=== PATIENT | male | born 1950 | race African-American/Black ===

== ENCOUNTER 2019-03-30 15:05 | Emergency (ER) | payer BC, MEDICARE, OTHER ==
[~2019-03-30] VITALS: Ht 185.4 cm; Wt 88.6 kg
[2019-03-30] MEDS ORDERED: IV NORMAL SALINE 1000ML BAG 1,000 ML IV ONE (15:15)
--- NOTE | 2019-03-30 15:18 | PHYS DOC ---
Adult General Chief Complaint Chief Complaint: DIZZY/LIGHT HEADED [facility] HPI Patient is a 68 year old male who presents to the ER after being sent over from his primary care physician's office due to dizziness and hypotension. He had positive orthostatic vital signs in the clinic. 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 He was asymptomatic at that time. Currently he is lying in bed and states that he feels better. He denies chest pain or shortness of breath, headache numbness tingling or weakness. Amlodipine 5 mg daily for blood pressure control. Review of Systems Review of Systems All other ROS is negative unless otherwise stated in HPI Current Medications Current Medications Current Medications Medications (Trade) Dose Ordered Sig/Cristina Start Time Stop Time Status Last Admin Dose Admin Sodium Chloride 1,000 ml @ 1,000 mls/hr 1X ONCE 03/30/19 15:15 03/30/19 16:14 DC 03/30/19 15:43 1,000 MLS/HR Allergies Allergies Allergies Coded Allergies Type Severity Reaction Last Updated Verified No Known Drug Allergies 03/30/19 No Physical Exam Physical Exam See above Constitutional: Well developed, well nourished, no acute distress, non-toxic appearance. [] HENT: Normocephalic, atraumatic, bilateral external ears normal, oropharynx moist, no oral exudates, nose normal. [] Eyes: PERRLA, EOMI, conjunctiva normal, no discharge. [] Neck: Normal range of motion, no tenderness, supple, no stridor. [] Cardiovascular:Heart rate regular rhythm, no murmur [] Lungs & Thorax: Bilateral breath sounds clear to auscultation [] Abdomen: Bowel sounds normal, soft, no tenderness, no masses, no pulsatile masses. [] Skin: Warm, dry, no erythema, no rash. [] Back: No tenderness, no CVA tenderness. [] Extremities: No tenderness, no cyanosis, no clubbing, ROM intact, no edema. [] Neurologic: Alert and oriented X 3, normal motor function, normal sensory function, no focal deficits noted. [] Psychologic: Affect normal, judgement normal, mood normal. [] Current Patient Data Vital Signs Vital Signs Date Time Temp Pulse Resp B/P (MAP) Pulse Ox O2 Delivery O2 Flow Rate FiO2 2/20/20 15:45 83 18 100 03/30/19 15:12 98.1 117/59 (78) Room Air 98.1 Lab Values Laboratory Tests Test 03/30/19 15:30 White Blood Count 5.7 x10^3/uL (4.0-11.0) Red Blood Count 2.71 x10^6/uL (4.30-5.70) L Hemoglobin 8.6 g/dL (13.0-17.5) L Hematocrit 25.3 % (39.0-53.0) L Mean Corpuscular Volume 93 fL (79-100) Mean Corpuscular Hemoglobin 32 pg (25-35) Mean Corpuscular Hemoglobin Concent 34 g/dL (31-37) Red Cell Distribution Width 14.9 % (11.5-14.5) H Platelet Count 162 x10^3/uL (140-400) Neutrophils (%) (Auto) 70 % (31-73) Lymphocytes (%) (Auto) 22 % (24-48) L Monocytes (%) (Auto) 6 % (0-9) Eosinophils (%) (Auto) 0 % (0-3) Basophils (%) (Auto) 1 % (0-3) Neutrophils # (Auto) 4.0 x10^3/uL (1.8-7.7) Lymphocytes # (Auto) 1.2 x10^3/uL (1.0-4.8) Monocytes # (Auto) 0.3 x10^3/uL (0.0-1.1) Eosinophils # (Auto) 0.0 x10^3/uL (0.0-0.7) Basophils # (Auto) 0.1 x10^3/uL (0.0-0.2) Sodium Level 141 mmol/L (136-145) Potassium Level 4.1 mmol/L (3.5-5.1) Chloride Level 110 mmol/L (98-107) H Carbon Dioxide Level 24 mmol/L (21-32) Anion Gap 7 (6-14) Blood Urea Nitrogen 59 mg/dL (8-26) H Creatinine 1.7 mg/dL (0.7-1.3) H Estimated GFR (Cockcroft-Gault) 48.9 Glucose Level 106 mg/dL (70-99) H Calcium Level 8.1 mg/dL (8.5-10.1) L Troponin I Quantitative < 0.017 ng/mL (0.000-0.055) Thyroid Stimulating Hormone (TSH) 0.611 uIU/mL (0.358-3.74) Laboratory Tests 03/30/19 15:30 Laboratory Tests 03/30/19 15:30 EKG EKG [] Radiology/Procedures Radiology/Procedures [] Course & Med Decision Making Course & Med Decision Making Pertinent Labs and Imaging studies reviewed. (See chart for details) 1518: Patient seen for dizziness and hypotension. He is currently feeling better and his blood pressure is 122/64 while lying in bed. We'll give IV fluids and check basic labs. I suspect he is likely orthostatic which is causing his low blood pressure. 1623: Patient's labs are back and he does have an elevated creatinine and he is also anemic. I discussed this with the patient and he states he was told he has stage III chronic kidney disease which is consistent with a creatinine of 1.7. His hemoglobin is 8.6 which could be from chronic renal disease or other etiologies; patient states she has never been told he has been anemic. We rechecked his orthostatic vital signs and he is no longer orthostatic; pulse increase slightly but minimal symptoms. She will be instructed to follow-up with his primary care physician next week for reevaluation of his blood pressure and also to initiate anemia workup. Dragon Disclaimer Dragon Disclaimer This electronic medical record was generated, in whole or in part, using a voice recognition dictation system. Departure Departure Impression: Primary Impression: Orthostatic hypotension Additional Impressions: CKD (chronic kidney disease), stage III Anemia Disposition: 01 HOME, SELF-CARE Condition: IMPROVED Referrals: RAYSA SHEARER (PCP) Please follow up next week to recheck BP and discuss anemia. Patient Instructions: Anemia, Nonspecific-Brief, Orthostatic Hypotension Additional Instructions: Please return to the emergency department for worsening symptoms. Monitor your blood pressure twice daily and bring ER record to your doctor next week. Problem Qualifiers DANYELLE GAMBLE DO Mar 30, 2019 15:18
[2019-03-30] MEDS ORDERED: ASCO500C PO (15:37)
[2019-03-30] MEDS ORDERED: AMLO5TAB10 PO (15:37)
[2019-03-30] MEDS ORDERED: ASPI-424 PO (15:37)
[2019-03-30] MEDS ORDERED: OMEG1CAP50 PO (15:37)
[2019-03-30 15:39] LABS: BASO # 0.1 x10^3/uL (0.0-0.2); BASO % 1 % (0-3); EOS % 0 % (0-3); HEMATOCRIT 25.3 % (39.0-53.0); HEMOGLOBIN 8.6 g/dL (13.0-17.5); LYMPH # 1.2 x10^3/uL (1.0-4.8); LYMPH % 22 % (24-48); MEAN CORPUSCULAR HEMOGLOBIN 32 pg (25-35); MEAN CORPUSCULAR HGB CONC 34 g/dL (31-37); MEAN CORPUSCULAR VOLUME 93 fL (79-100); MONO # 0.3 x10^3/uL (0.0-1.1); MONO % 6 % (0-9); NEUT % 70 % (31-73); PLATELET COUNT 162 x10^3/uL (140-400); RED BLOOD COUNT 2.71 x10^6/uL (4.30-5.70); RED CELL DISTRIBUTION WIDTH 14.9 % (11.5-14.5); WHITE BLOOD COUNT 5.7 x10^3/uL (4.0-11.0)
[2019-03-30 15:49] LABS: CALCIUM 8.1 mg/dL (8.5-10.1); CREATININE 1.7 mg/dL (0.7-1.3); GFR 48.9; POTASSIUM 4.1 mmol/L (3.5-5.1)
--- NOTE | 2019-03-30 15:53 | EKG ---
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
[2019-03-30 16:15] VITALS: BP 126/67
[2019-04-03] MEDS ORDERED: PANT40TA77 PO (09:32)
== END 2019-03-30 16:47 | disposition home or self-care (01) ==
LOC: ER 15:05
DX: I10 Essential (primary) hypertension (principal); N18.3 Chronic kidney disease, stage 3 (moderate); D64.9 Anemia, unspecified; R42 Dizziness and giddiness
CPT/HCPCS: 36415; 80048; 84443; 84484; 85025; 93005; 96360; 99284; J7030

== ENCOUNTER 2019-04-01 09:17 | Inpatient (IN) | payer BC ==
[~2019-04-01] VITALS: Ht 186.7 cm; Wt 90.4 kg
[2019-04-01] VITALS (10 sets, daily range): BP systolic 112–132; BP diastolic 54–78
[~2019-04-01 09:17] MED LIST: AMLO5TAB10 PO; ASCO500C PO; ASPI-424 PO; OMEG1CAP50 PO
[2019-04-01 10:12] LABS: BASO # 0.1 x10^3/uL (0.0-0.2); BASO % 1 % (0-3); EOS # 0.1 x10^3/uL (0.0-0.7); EOS % 1 % (0-3); LYMPH # 1.2 x10^3/uL (1.0-4.8); LYMPH % 21 % (24-48); MEAN CORPUSCULAR HEMOGLOBIN 32 pg (25-35); MEAN CORPUSCULAR HGB CONC 34 g/dL (31-37); MEAN CORPUSCULAR VOLUME 93 fL (79-100); MONO # 0.5 x10^3/uL (0.0-1.1); MONO % 8 % (0-9); NEUT # 3.9 x10^3/uL (1.8-7.7); NEUT % 69 % (31-73); PLATELET COUNT 155 x10^3/uL (140-400); RED BLOOD COUNT 2.18 x10^6/uL (4.30-5.70); RED CELL DISTRIBUTION WIDTH 15.5 % (11.5-14.5); WHITE BLOOD COUNT 5.7 x10^3/uL (4.0-11.0)
[2019-04-01 10:13] LABS: CALCIUM 8.5 mg/dL (8.5-10.1); CREATININE 1.8 mg/dL (0.7-1.3); GFR 45.8; POTASSIUM 3.8 mmol/L (3.5-5.1)
[2019-04-01 10:18] LABS: HEMOGLOBIN 6.9 g/dL (13.0-17.5)
[2019-04-01 10:19] LABS: ALBUMIN 2.8 g/dL (3.4-5.0); ALBUMIN/GLOBULIN RATIO 0.9 (1.0-1.7); HEMATOCRIT 20.4 % (39.0-53.0); TOTAL BILIRUBIN 0.3 mg/dL (0.2-1.0)
[2019-04-01 10:26] LABS: PROTHROMBIN TIME PATIENT 13.8 SEC (11.7-14.0)
[2019-04-01 10:36] LABS: FECAL OB PT POSITIVE (NEG)
[2019-04-01] MEDS ORDERED: PANTOPRAZOLE IV PUSH 40 MG VIAL. IVP ONE (10:45)
--- NOTE | 2019-04-01 10:46 | PHYS DOC ---
Past Medical History Past Medical History: Hypertension, Renal Disease, Other Additional Past Medical Histor: encephalitis, TBI Past Surgical History: No Surgical History Smoking Status: Never Smoker Alcohol Use: None Adult General Chief Complaint Chief Complaint: BLOODY STOOL HPI HPI Patient is a 68 year old male who was evaluated in the ER on 03/30/19 after being sent over from his primary care physician's office due to dizziness and hypotension. He had positive orthostatic vital signs in the clinic. 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 He was asymptomatic at that time. He was found to be orthostatus hypotension. He was given IV fluid, felt much better. He was found to be anemic, his hemoglobin was 8.6 on 03/30/19. Due to no active bleeding and history of chronic renal insufficiency, he was deem safe to be discharged home. He came back today for evaluation because he passed dark stool last night. He continues to feel weak and shortness of air with exertion. Patient denied any abdominal pain, no chest pain. He denied vomiting blood. His stopped taking his aspirin 4 days ago. Review of Systems Review of Systems Constitutional: Denies fever or chills [] Eyes: Denies change in visual acuity, redness, or eye pain [] HENT: Denies nasal congestion or sore throat [] Respiratory: Denies cough or shortness of breath [] Cardiovascular: No additional information not addressed in HPI [] GI: Denies abdominal pain, nausea, vomiting, bloody stools or diarrhea [] : Denies dysuria or hematuria [] Musculoskeletal: Denies back pain or joint pain [] Integument: Denies rash or skin lesions [] Neurologic: Denies headache, focal weakness or sensory changes. POSITIVE FOR GENERALIZED WEAKNESS Endocrine: Denies polyuria or polydipsia [] All other systems were reviewed and found to be within normal limits, except as documented in this note. Current Medications Current Medications Current Medications Medications (Trade) Dose Ordered Sig/Cristina Start Time Stop Time Status Last Admin Dose Admin Ondansetron HCl (Zofran) 4 mg PRN Q8HRS PRN 04/01/19 11:15 04/02/19 11:14 Pantoprazole Sodium (PROTONIX VIAL for IV PUSH) 40 mg 1X ONCE 04/01/19 10:45 04/01/19 10:46 DC 04/01/19 11:10 40 MG Allergies Allergies Allergies Coded Allergies Type Severity Reaction Last Updated Verified No Known Drug Allergies 04/01/19 No Physical Exam Physical Exam Constitutional: Well developed, well nourished, no acute distress, non-toxic appearance. [] HENT: Normocephalic, atraumatic, bilateral external ears normal, oropharynx moist, no oral exudates, nose normal. [] Eyes: PERRLA, EOMI, conjunctiva IS VERY PALE, no discharge. [] Neck: Normal range of motion, no tenderness, supple, no stridor. [] Cardiovascular:Heart rate regular rhythm, no murmur [] Lungs & Thorax: Bilateral breath sounds clear to auscultation [] Abdomen: Bowel sounds normal, soft, no tenderness, no masses, no pulsatile masses. [] Skin: Warm, dry, no erythema, no rash. VERY PALE Back: No tenderness, no CVA tenderness. [] Extremities: No tenderness, no cyanosis, no clubbing, ROM intact, no edema. [] Neurologic: Alert and oriented X 3, normal motor function, normal sensory function, no focal deficits noted. [] Psychologic: Affect normal, judgement normal, mood normal. [] Current Patient Data Vital Signs Vital Signs Date Time Temp Pulse Resp B/P (MAP) Pulse Ox O2 Delivery O2 Flow Rate FiO2 04/01/19 09:20 97.5 84 20 130/63 (85) 99 Room Air 97.5 Lab Values Laboratory Tests Test 04/01/19 09:59 04/01/19 10:10 White Blood Count 5.7 x10^3/uL (4.0-11.0) Red Blood Count 2.18 x10^6/uL (4.30-5.70) L Hemoglobin 6.9 g/dL (13.0-17.5) *L Hematocrit 20.4 % (39.0-53.0) *L Mean Corpuscular Volume 93 fL (79-100) Mean Corpuscular Hemoglobin 32 pg (25-35) Mean Corpuscular Hemoglobin Concent 34 g/dL (31-37) Red Cell Distribution Width 15.5 % (11.5-14.5) H Platelet Count 155 x10^3/uL (140-400) Neutrophils (%) (Auto) 69 % (31-73) Lymphocytes (%) (Auto) 21 % (24-48) L Monocytes (%) (Auto) 8 % (0-9) Eosinophils (%) (Auto) 1 % (0-3) Basophils (%) (Auto) 1 % (0-3) Neutrophils # (Auto) 3.9 x10^3/uL (1.8-7.7) Lymphocytes # (Auto) 1.2 x10^3/uL (1.0-4.8) Monocytes # (Auto) 0.5 x10^3/uL (0.0-1.1) Eosinophils # (Auto) 0.1 x10^3/uL (0.0-0.7) Basophils # (Auto) 0.1 x10^3/uL (0.0-0.2) Prothrombin Time 13.8 SEC (11.7-14.0) Prothrombin Time INR 1.1 (0.8-1.1) Activated Partial Thromboplast Time 25 SEC (24-38) Sodium Level 144 mmol/L (136-145) Potassium Level 3.8 mmol/L (3.5-5.1) Chloride Level 108 mmol/L (98-107) H Carbon Dioxide Level 27 mmol/L (21-32) Anion Gap 9 (6-14) Blood Urea Nitrogen 28 mg/dL (8-26) H Creatinine 1.8 mg/dL (0.7-1.3) H Estimated GFR (Cockcroft-Gault) 45.8 BUN/Creatinine Ratio 16 (6-20) Glucose Level 108 mg/dL (70-99) H Calcium Level 8.5 mg/dL (8.5-10.1) Total Bilirubin 0.3 mg/dL (0.2-1.0) Aspartate Amino Transferase (AST) 25 U/L (15-37) Alanine Aminotransferase (ALT) 36 U/L (16-63) Alkaline Phosphatase 39 U/L (46-116) L Total Protein 6.0 g/dL (6.4-8.2) L Albumin 2.8 g/dL (3.4-5.0) L Albumin/Globulin Ratio 0.9 (1.0-1.7) L Stool Occult Blood Positive (NEG) Laboratory Tests 04/01/19 09:59 Laboratory Tests 04/01/19 09:59 EKG EKG [] Radiology/Procedures Radiology/Procedures [] Course & Med Decision Making Course & Med Decision Making Pertinent Labs and Imaging studies reviewed. (See chart for details) Patient is a 68-year-old male who was found to be anemic, report of history of dark stool, suspect OF upper GI bleeding, patient was given 40 mg of protonic IV in the ER, he was given a transfusion 1 unit OF PRBC. Patient WILL be admitted hospital for further evaluation. GI CONSULT, DISCUSSED WITH DR. MASSEY WHO AGREED TO ADMIT PATIENT. Dragon Disclaimer Dragon Disclaimer This electronic medical record was generated, in whole or in part, using a voice recognition dictation system. Departure Departure Impression: Primary Impression: Anemia Additional Impression: GI bleed Disposition: ADMITTED INPATIENT Admitting Physician: Nayla Massey Condition: STABLE Referrals: RAYSA SHEARER (PCP) Problem Qualifiers ADIEL BE DO Apr 01, 2019 10:46
[2019-04-01] MEDS ORDERED: ONDANSETRON PF 4 MG/2 ML VIAL. IV PRN (11:15)
[2019-04-01 11:23] LABS: BILIRUBIN,URINE NEGATIVE (NEG); CLARITY,URINE CLEAR; COLOR,URINE YELLOW; NITRITE,URINE NEGATIVE (NEG); PH,URINE 5.5; PROTEIN,URINE NEGATIVE (NEG-TRACE); UROBILINOGEN,URINE 0.2 mg/dL (0.2 mg/dL)
[2019-04-01 11:37] LABS: BACTERIA,URINE 0 /HPF (0-FEW); RBC,URINE 0 /HPF (0-2); SQUAMOUS EPITHELIAL CELL,UR FEW /LPF; WBC,URINE 0 /HPF (0-4)
--- NOTE | 2019-04-01 14:36 | PDOC2 ---
GI CONSULT Reason For Consult: anemia, melena HPI: HPI: 68 year old male who was evaluated in the ER on 03/30/19 after being sent over from his primary care physician's office due to dizziness and hypotension. He had positive orthostatic vital signs in the clinic. 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 He was discharged home. He came back today for evaluation because he passed dark stool last night. He continues to feel weak and shortness of air with exertion. Patient denied any abdominal pain, no chest pain. He denied vomiting blood. His stopped taking his aspirin 2 days ago. he denies any other NSAIDs. he has been having indigestion for which he takes TUMs. He also has been having a daily BM which is an increase for him He was found to have a hgb of 6.9 in the ER. he reports a colonoscopy by Dr Brantley 10/2018. His thinks that he may have had an ulcer. She reports that she was told that biopsies were unrevealing. he has never had an EGD PMH: PMH: Past Medical History Past Medical History: Hypertension, Renal Disease, heart murmur as a teen Additional Past Medical Histor: encephalitis, TBI Past Surgical History: No Surgical History Smoking Status: Never Smoker Alcohol Use: None FMH: father with CRC in his 70s Current Medications Current Medications Amlodipine Vitamin C Fish oil ASA 81 mg Allergies Allergies Allergies Coded Allergies Type Severity Reaction Last Updated Verified No Known Drug Allergies 04/01/19 No Social History: Smoke: No ALCOHOL: none Drugs: None ROS: Review of Systems Review of Systems Constitutional: Denies fever or chills [] Eyes: Denies change in visual acuity, redness, or eye pain [] HENT: Denies nasal congestion or sore throat [] Respiratory: Denies cough or shortness of breath [] Cardiovascular: No additional information not addressed in HPI [] GI: Denies abdominal pain, nausea, vomiting, bloody stools or diarrhea [] : Denies dysuria or hematuria [] Musculoskeletal: Denies back pain or joint pain [] Integument: Denies rash or skin lesions [] Neurologic: Denies headache, focal weakness or sensory changes. POSITIVE FOR GENERALIZED WEAKNESS Endocrine: Denies polyuria or polydipsia [] All other systems were reviewed and found to be within normal limits, except as documented in this note. VItals: Vitals: Vital Signs Date Time Temp Pulse Resp B/P (MAP) Pulse Ox O2 Delivery O2 Flow Rate FiO2 04/01/19 12:33 97.7 74 16 112/64 (80) 98 Room Air 97.7 Labs: Labs: Laboratory Tests Test 04/01/19 09:59 04/01/19 10:10 04/01/19 11:12 White Blood Count 5.7 x10^3/uL (4.0-11.0) Red Blood Count 2.18 x10^6/uL (4.30-5.70) Hemoglobin 6.9 g/dL (13.0-17.5) Hematocrit 20.4 % (39.0-53.0) Mean Corpuscular Volume 93 fL (79-100) Mean Corpuscular Hemoglobin 32 pg (25-35) Mean Corpuscular Hemoglobin Concent 34 g/dL (31-37) Red Cell Distribution Width 15.5 % (11.5-14.5) Platelet Count 155 x10^3/uL (140-400) Neutrophils (%) (Auto) 69 % (31-73) Lymphocytes (%) (Auto) 21 % (24-48) Monocytes (%) (Auto) 8 % (0-9) Eosinophils (%) (Auto) 1 % (0-3) Basophils (%) (Auto) 1 % (0-3) Neutrophils # (Auto) 3.9 x10^3/uL (1.8-7.7) Lymphocytes # (Auto) 1.2 x10^3/uL (1.0-4.8) Monocytes # (Auto) 0.5 x10^3/uL (0.0-1.1) Eosinophils # (Auto) 0.1 x10^3/uL (0.0-0.7) Basophils # (Auto) 0.1 x10^3/uL (0.0-0.2) Prothrombin Time 13.8 SEC (11.7-14.0) Prothromb Time International Ratio 1.1 (0.8-1.1) Activated Partial Thromboplast Time 25 SEC (24-38) Sodium Level 144 mmol/L (136-145) Potassium Level 3.8 mmol/L (3.5-5.1) Chloride Level 108 mmol/L (98-107) Carbon Dioxide Level 27 mmol/L (21-32) Anion Gap 9 (6-14) Blood Urea Nitrogen 28 mg/dL (8-26) Creatinine 1.8 mg/dL (0.7-1.3) Estimated GFR (Cockcroft-Gault) 45.8 BUN/Creatinine Ratio 16 (6-20) Glucose Level 108 mg/dL (70-99) Calcium Level 8.5 mg/dL (8.5-10.1) Total Bilirubin 0.3 mg/dL (0.2-1.0) Aspartate Amino Transf (AST/SGOT) 25 U/L (15-37) Alanine Aminotransferase (ALT/SGPT) 36 U/L (16-63) Alkaline Phosphatase 39 U/L (46-116) Total Protein 6.0 g/dL (6.4-8.2) Albumin 2.8 g/dL (3.4-5.0) Albumin/Globulin Ratio 0.9 (1.0-1.7) Stool Occult Blood Positive (NEG) Urine Collection Type Unknown Urine Color Yellow Urine Clarity Clear Urine pH 5.5 Urine Specific Egan 1.015 Urine Protein Negative mg/dL (NEG-TRACE) Urine Glucose (UA) Negative mg/dL (NEG) Urine Ketones (Stick) Negative mg/dL (NEG) Urine Blood Negative (NEG) Urine Nitrite Negative (NEG) Urine Bilirubin Negative (NEG) Urine Urobilinogen Dipstick 0.2 mg/dL (0.2 mg/dL) Urine Leukocyte Esterase Negative (NEG) Urine RBC 0 /HPF (0-2) Urine WBC 0 /HPF (0-4) Urine Squamous Epithelial Cells Few /LPF Urine Bacteria 0 /HPF (0-FEW) PE: GEN: NAD HEENT: Atraumatic, PERRLA LUNGS: CTAB HEART: RRR, with a 2/6 systolic murmur ABD: NABS, S/ND/NT, no masses EXTREMITY: No edema SKIN: No rashes, no jaundice NEURO/PSYCH: A & O 3 A/P: A/P: A 1) Anemia 2) Melena 3) FMH CRC P 1) PPI gtts 2) transfuse prbcs 3) EGD tomorrow after transfusion today PRO SUGGS MD Apr 01, 2019 14:36
[2019-04-01] MEDS ORDERED: 0.9 % SODIUM CHLORIDE 10 ML DISP.SYRIN. IV PRN (14:45)
[2019-04-01] MEDS: PANTOPRAZOLE SODIUM IV DRIP 80 MG in IV NORMAL SALINE 100ML 100 ML IV SCH (21:42)
[2019-04-01] MEDS: IV NORMAL SALINE 1000ML BAG 1,000 ML IV SCH (22:30)
[2019-04-01 22:46] LABS: HEMATOCRIT 21.3 % (39.0-53.0); HEMOGLOBIN 7.4 g/dL (13.0-17.5)
[2019-04-02] VITALS (13 sets, daily range): BP systolic 63–128; BP diastolic 52–71
[2019-04-02] MEDS: PANTOPRAZOLE SODIUM IV DRIP 80 MG in IV NORMAL SALINE 100ML 100 ML IV SCH ×2 (01:00→11:00)
[2019-04-02 05:37] LABS: HEMATOCRIT 21.9 % (39.0-53.0); HEMOGLOBIN 7.5 g/dL (13.0-17.5); WHITE BLOOD COUNT 5.6 x10^3/uL (4.0-11.0)
[2019-04-02 05:54] LABS: CREATININE 1.7 mg/dL (0.7-1.3); GFR 48.9; POTASSIUM 3.7 mmol/L (3.5-5.1)
[2019-04-02] MEDS: IV NORMAL SALINE 1000ML BAG 1,000 ML IV SCH (06:10)
--- NOTE | 2019-04-02 11:15 | PDOC ---
Provider Note Provider Note Pt seen.H&P dictated. #[id number]. JLUIS CHRISTOPHER MD Apr 02, 2019 11:15
[2019-04-02] MEDS ORDERED: PROPOFOL 20 ML IV ONE (12:58)
[2019-04-02] MEDS ORDERED: LIDOCAINE 2% PF 5 ML VIAL. ONE (12:59)
--- NOTE | 2019-04-02 13:35 | PDOC ---
Subjective: Subjective: no further black stools. Received one unit of blood yesterday. Hgb 7.5 Objective: Vital Signs: Vital Signs Date Time Temp Pulse Resp B/P (MAP) Pulse Ox O2 Delivery O2 Flow Rate FiO2 04/02/19 13:20 98.0 89 20 105/67 97 Room Air 98.0 Labs: Laboratory Tests Test 04/01/19 22:30 04/02/19 04:55 Hemoglobin 7.4 g/dL (13.0-17.5) 7.5 g/dL (13.0-17.5) Hematocrit 21.3 % (39.0-53.0) 21.9 % (39.0-53.0) White Blood Count 5.6 x10^3/uL (4.0-11.0) Platelet Count 155 x10^3/uL (140-400) Sodium Level 144 mmol/L (136-145) Potassium Level 3.7 mmol/L (3.5-5.1) Chloride Level 108 mmol/L (98-107) Carbon Dioxide Level 29 mmol/L (21-32) Anion Gap 7 (6-14) Blood Urea Nitrogen 19 mg/dL (8-26) Creatinine 1.7 mg/dL (0.7-1.3) Estimated GFR (Cockcroft-Gault) 48.9 Glucose Level 104 mg/dL (70-99) Calcium Level 8.0 mg/dL (8.5-10.1) Physical Exam: Physical Exam: GEN: NAD HEENT: OP clear CV: S1S2 without murmurs, rubs, or gallops RESP: CTAB without wheezing, rhonchi, or crackles ABD: NABS, SNT/ND EXT: No edema NEURO: AAO x 3 Assessment & Plan: Assessment : 1) Anemia 2) melena GI Procedure note: Full not on chart Findings: 1) Esophagitis biopsied 2) Gastric ulcer in antrum- nonbleeding and gastritis biopsied 3) normal small bowel- biopsied Plan: 1) Continue PPI 2) Await biopsy results 3) Will give one more unit prbcs 4) Hold ASA for now 5) Likely d/c tomorrow PRO SUGGS MD Apr 02, 2019 13:35
--- NOTE | 2019-04-02 14:33 | HP ---
ADMIT DATE: MEDICAL HISTORY AND PHYSICAL REASON FOR ADMISSION TO THE HOSPITAL: Anemia, possible upper GI bleed, hypertension. HISTORY OF PRESENT ILLNESS: The patient is a 68-year-old male, patient of Dr. Montoya. The patient came to the Emergency Room 1 day before lightheaded, dizzy, was given fluids, sent home and he was noticed some black stools. The patient came back again and was seen in the Emergency Room, had blood test, shows hemoglobin 6.9, was given a unit of packed RBC. GI was consulted, scheduled for EGD. The patient has a colonoscopy within last 6 months and was negative. PAST MEDICAL HISTORY: Hypertension, mild kidney disease, encephalitis in the past. PAST SURGICAL HISTORY: No major surgeries. ALLERGIES: No allergies. FAMILY HISTORY: Kidney disease. PERSONAL HISTORY: Denies smoking, alcohol or drug abuse. MEDICATIONS AT HOME: The patient takes amlodipine, fish oil and aspirin. REVIEW OF SYSTEMS: Complains of black stools. Denies any vomiting blood. Rest of the 14 systems was reviewed and negative. PHYSICAL EXAMINATION: VITAL SIGNS: Temperature 97, pulse 80, respirations 20, blood pressure 120/80. HEENT: Head is atraumatic. Pupils equal. Oral cavity: No congestion. NECK: Supple. Thyroid not enlarged. JVD not elevated. CHEST: Symmetrical. CARDIOVASCULAR: S1, S2. LUNGS: Clear to auscultation. ABDOMEN: Soft, bowel sounds present, no mass palpable. EXTERNAL GENITALIA: No [place]. RECTAL: Deferred. EXTREMITIES: No calf tenderness, no edema. Pulses 1+. NEUROLOGIC: Moving all extremities. No focal deficits noted. LABORATORY DATA: Shows a white count of 5, hemoglobin 6.9, platelets 155. INR 1.1. Electrolytes showed sodium 144, potassium 3.8, chloride 108, bicarb 27, creatinine 1.8. LFTs were normal. Stool occult blood was positive. FINAL IMPRESSION: 1. Upper gastrointestinal bleed. 2. Anemia. 3. Hypertension. 4. Chronic kidney disease. PLAN: At this time, was admitted to the hospital. Transfuse 1 unit. Started on IV Protonix and Protonix drip. GI consulted. Schedule for EGD, IV fluids and see how he improves. Stop aspirin. JLUIS CHRISTOPHER MD DR: FELIZ/larry JOB#: [id number] / [id number] RAYSA Lai
[2019-04-03 03:30] VITALS: BP 113/61
[2019-04-03 04:08] LABS: BASO % 1 % (0-3); EOS # 0.1 x10^3/uL (0.0-0.7); EOS % 1 % (0-3); HEMATOCRIT 25.3 % (39.0-53.0); HEMOGLOBIN 8.8 g/dL (13.0-17.5); LYMPH # 1.6 x10^3/uL (1.0-4.8); LYMPH % 20 % (24-48); MEAN CORPUSCULAR HEMOGLOBIN 32 pg (25-35); MEAN CORPUSCULAR HGB CONC 35 g/dL (31-37); MEAN CORPUSCULAR VOLUME 93 fL (79-100); MONO # 0.7 x10^3/uL (0.0-1.1); MONO % 8 % (0-9); NEUT # 5.6 x10^3/uL (1.8-7.7); NEUT % 71 % (31-73); PLATELET COUNT 168 x10^3/uL (140-400); RED BLOOD COUNT 2.73 x10^6/uL (4.30-5.70); RED CELL DISTRIBUTION WIDTH 15.1 % (11.5-14.5)
[2019-04-03 04:36] LABS: CALCIUM 7.9 mg/dL (8.5-10.1); CREATININE 1.8 mg/dL (0.7-1.3); GFR 45.8; POTASSIUM 3.5 mmol/L (3.5-5.1)
[2019-04-03] MEDS ORDERED: PANTOPRAZOLE 40 MG TABLET.DR. PO SCH (07:30)
[2019-04-03 07:59] VITALS: BP 101/57
--- NOTE | 2019-04-03 09:29 | PDOC ---
PROGRESS NOTES Subjective Subjective feels better today Objective Objective Vital Signs Date Time Temp Pulse Resp B/P (MAP) Pulse Ox O2 Delivery O2 Flow Rate FiO2 04/03/19 08:06 Room Air 04/03/19 07:59 98.4 69 18 101/57 (72) 99 98.4 Intake and Output 04/03/19 07:00 Intake Total 2220 ml Output Total 1780 ml Balance 440 ml Intake Oral 1570 ml Blood Product IV Normal Saline Flush 650 ml Output Urine Total 1780 ml Physical Exam Abdomen: Soft Heart: Regular rate Extremities: No clubbing General: Oriented X3 HEENT: Atraumatic Lungs: Clear to auscultation MUSCULOSKELETAL: No swelling Neck: No JVD Neuro: Normal speech Psych/Mental Status: Mental status NL Skin: No breakdown Diagnosis Problem List Problems Medical Problems: (1) Anemia Status: Acute (2) GI bleed Status: Acute Assessment Assessment Problems Medical Problems: (1) Anemia Status: Acute (2) GI bleed Status: Acute FINAL IMPRESSION: 1. Upper gastrointestinal bleed. 2. Anemia. 3. Hypertension. 4. Chronic kidney disease. Findings:recieved 2 u prbc ,Hb 8.8. cr 1.8 stable. d/c home on protonix stop asa and Nsaids. 1) Esophagitis biopsied 2) Gastric ulcer in antrum- nonbleeding and gastritis biopsied 3) normal small bowel- biopsied Plan Plan of Care Problems Medical Problems: (1) Anemia Status: Acute (2) GI bleed Status: Acute Comment Review of Relevant I have reviewed the following items galdino (where applicable) has been applied. Labs Laboratory Tests Test 04/03/19 03:15 White Blood Count 8.0 x10^3/uL (4.0-11.0) Red Blood Count 2.73 x10^6/uL (4.30-5.70) Hemoglobin 8.8 g/dL (13.0-17.5) Hematocrit 25.3 % (39.0-53.0) Mean Corpuscular Volume 93 fL (79-100) Mean Corpuscular Hemoglobin 32 pg (25-35) Mean Corpuscular Hemoglobin Concent 35 g/dL (31-37) Red Cell Distribution Width 15.1 % (11.5-14.5) Platelet Count 168 x10^3/uL (140-400) Neutrophils (%) (Auto) 71 % (31-73) Lymphocytes (%) (Auto) 20 % (24-48) Monocytes (%) (Auto) 8 % (0-9) Eosinophils (%) (Auto) 1 % (0-3) Basophils (%) (Auto) 1 % (0-3) Neutrophils # (Auto) 5.6 x10^3/uL (1.8-7.7) Lymphocytes # (Auto) 1.6 x10^3/uL (1.0-4.8) Monocytes # (Auto) 0.7 x10^3/uL (0.0-1.1) Eosinophils # (Auto) 0.1 x10^3/uL (0.0-0.7) Basophils # (Auto) 0.0 x10^3/uL (0.0-0.2) Sodium Level 143 mmol/L (136-145) Potassium Level 3.5 mmol/L (3.5-5.1) Chloride Level 109 mmol/L (98-107) Carbon Dioxide Level 26 mmol/L (21-32) Anion Gap 8 (6-14) Blood Urea Nitrogen 20 mg/dL (8-26) Creatinine 1.8 mg/dL (0.7-1.3) Estimated GFR (Cockcroft-Gault) 45.8 Glucose Level 110 mg/dL (70-99) Calcium Level 7.9 mg/dL (8.5-10.1) Medications Current Medications Lidocaine HCl (Lidocaine Pf 2% Vial) 5 ml STK-MED ONCE .ROUTE ; Start 04/02/19 at 12:59; Stop 04/02/19 at 12:59; Status DC Pantoprazole Sodium (Protonix) 40 mg DAILYAC PO ; Start 04/03/19 at 07:30; Stop 04/02/19 at 20:26; Status DC Propofol 20 ml @ As Directed STK-MED ONCE IV ; Start 04/02/19 at 12:58; Stop 04/02/19 at 12:59; Status DC Vitals/I & O Vital Sign - Last 24 Hours 04/02/19 04/02/19 04/02/19 04/02/19 11:37 12:34 13:10 13:20 Temp 98.0 98.0 98.0 98.0 98.0 98.0 98.0 98.0 Pulse 61 75 71 89 Resp 16 20 20 20 B/P (MAP) 63/62 (62) 116/66 105/67 Pulse Ox 97 98 98 97 O2 Delivery Room Air Room Air Room Air 04/02/19 04/02/19 04/02/19 04/02/19 13:29 14:24 14:30 14:45 Temp 98.0 97.6 97.5 98.0 98.0 97.6 97.5 98.0 Pulse 68 65 63 72 Resp 20 18 18 18 B/P (MAP) 136/71 127/58 122/71 125/69 Pulse Ox 99 O2 Delivery Room Air 04/02/19 04/02/19 04/02/19 04/02/19 15:00 15:15 15:30 15:30 Temp 97.6 97.6 97.9 97.5 97.6 97.6 97.9 97.5 Pulse 73 73 64 74 Resp 18 18 16 18 B/P (MAP) 128/62 124/56 100/64 (76) 118/68 Pulse Ox 96 O2 Delivery Room Air 04/02/19 04/02/19 04/02/19 04/02/19 16:30 17:09 19:35 20:00 Temp 98.0 97.6 97.7 98.0 97.6 97.7 Pulse 74 76 76 Resp 18 18 17 B/P (MAP) 118/64 120/62 122/63 (82) Pulse Ox 99 O2 Delivery Room Air Room Air 04/02/19 04/03/19 04/03/19 04/03/19 23:35 03:30 07:59 08:06 Temp 98.6 98.7 98.4 98.6 98.7 98.4 Pulse 76 18 69 Resp 17 17 18 B/P (MAP) 111/52 (71) 113/61 (78) 101/57 (72) Pulse Ox 98 95 99 O2 Delivery Room Air Room Air Room Air Room Air Intake and Output 04/02/19 04/02/19 04/03/19 15:00 23:00 07:00 Intake Total 380 ml 800 ml 1040 ml Output Total 680 ml 600 ml 500 ml Balance -300 ml 200 ml 540 ml JLUIS CHRISTOPHER MD Apr 03, 2019 09:29
[2019-04-03] MEDS ORDERED: PANT40TA77 PO (09:32)
--- NOTE | 2019-04-03 09:36 | PDOC ---
Provider Note Provider Note Discharge summary dictated.#[id number]. JLUIS CHRISTOPHER MD Apr 03, 2019 09:36
--- NOTE | 2019-04-03 10:36 | PDOC ---
Subjective: Subjective: Feeling good, no bleeding, tolerating diet, would like to go home today. Objective: Vital Signs: Vital Signs Date Time Temp Pulse Resp B/P (MAP) Pulse Ox O2 Delivery O2 Flow Rate FiO2 04/03/19 08:06 Room Air 04/03/19 07:59 98.4 69 18 101/57 (72) 99 98.4 Labs: Laboratory Tests Test 04/03/19 03:15 White Blood Count 8.0 x10^3/uL Red Blood Count 2.73 x10^6/uL Hemoglobin 8.8 g/dL Hematocrit 25.3 % Mean Corpuscular Volume 93 fL Mean Corpuscular Hemoglobin 32 pg Mean Corpuscular Hemoglobin Concent 35 g/dL Red Cell Distribution Width 15.1 % Platelet Count 168 x10^3/uL Neutrophils (%) (Auto) 71 % Lymphocytes (%) (Auto) 20 % Monocytes (%) (Auto) 8 % Eosinophils (%) (Auto) 1 % Basophils (%) (Auto) 1 % Neutrophils # (Auto) 5.6 x10^3/uL Lymphocytes # (Auto) 1.6 x10^3/uL Monocytes # (Auto) 0.7 x10^3/uL Eosinophils # (Auto) 0.1 x10^3/uL Basophils # (Auto) 0.0 x10^3/uL Sodium Level 143 mmol/L Potassium Level 3.5 mmol/L Chloride Level 109 mmol/L Carbon Dioxide Level 26 mmol/L Anion Gap 8 Blood Urea Nitrogen 20 mg/dL Creatinine 1.8 mg/dL Estimated GFR (Cockcroft-Gault) 45.8 Glucose Level 110 mg/dL Calcium Level 7.9 mg/dL Imaging: EGD by Dr. Michel 04/02 Findings: 1) Esophagitis biopsied 2) Gastric ulcer in antrum- nonbleeding and gastritis biopsied 3) normal small bowel- biopsied PE: GEN: NAD LUNGS: CTAB HEART: RRR ABD: NABS, S/ND/NT NEURO/PSYCH: A & O 3 A/P: Melena - resolved Anemia - improved/stable post transfusions Esophagitis, - EGD path pending CRC screen - UTD ASA use - held CKD -- DC per primary on PPI - d/w pt. Hold ASA x 2 weeks. Follow-up re: biopsy results. Hemodynamically unstable?: No Is patient in severe pain?: No Is NPO status required?: No ZEYNEP LAZAR Apr 03, 2019 10:36
--- NOTE | 2019-04-03 12:18 | NUR ---
pt is discharged home with self care at 1215 via ambulation via huma, ASSEMBLER PING PONG TABLE. pt is in stable condition with at side. pt has all belongings with him. pt received discharge instructions and prescriptions and stated he had no further questions for me.
--- NOTE | 2019-04-03 15:15 | DS ---
DATE OF DISCHARGE: 04/03/2019 ATTENDING PHYSICIAN: Nayla Christopher MD PRIMARY PHYSICIAN: María Elena Shearer MD REASON FOR ADMISSION TO THE HOSPITAL: Upper gastrointestinal bleed, black stools, and hypertension. CONSULTATIONS: Dr. Michel. PROCEDURES DONE: EGD. COMPLICATIONS NOTED: None. HOSPITAL COURSE: The patient is a 68-year-old male patient who has a history of hypertension, chronic kidney disease, creatinine around 1.8, takes aspirin and he was having lightheaded and dizzy, came to the ER a couple of days ago, was given fluids and sent home and was still feeling woozy and has noticed some black stools, was brought to the hospital. Hemoglobin was 6.9, was transfused 2 units, went up to 8.8, was seen by GI, Dr. Michel, had EGD, which shows gastric ulcer in the antrum, nonbleeding. Biopsy was done. Normal small bowel. Esophagitis. Biopsy was done. The patient was feeling better and hemoglobin remained stable. He had a colonoscopy 6 months ago and it was felt that he could be discharged home. Follow up with PCP. Stop aspirin. Do not take any nonsteroidals. Continue Protonix for at least 2 months follow. FINAL DIAGNOSES: 1. Anemia secondary to upper gastrointestinal bleed. 2. Gastric ulcer on EGD, nonbleeding at this time. 3. Hypertension. 4. Chronic kidney disease, creatinine 1.8, stable. DISPOSITION: Home. DISCHARGE MEDICATIONS: See MRAD for discharge medications. FOLLOWUP: Follow with PCP in 1 week, GI in 2 weeks. Protonix 40 mg daily for 2 months and stop aspirin, and stop nonsteroidals. NAYLA CHRISTOPHER MD DR: FELIZ/larry JOB#: [id number] / [id number] [facility] MARÍA ELENA SHEARER
--- NOTE | 2019-04-04 17:07 | PATHOLOGY ---
[facility] Accession Number: [id number] . 01 Material submitted: . PART A: small bowel - SMALL BOWEL BX PART B: stomach - GASTRIC ULCER PART C: esophagus - DISTAL ESOPHAGUS BX. Modifiers: distal . 01 Clinical history: . GI bleeding Gastritis/gastric ulcer . 02 Diagnosis: A. Small bowel biopsies: - No significant pathologic abnormalities. . B. Gastric biopsies, gastric ulcer: - Reactive gastropathy with acute inflammation. . C. Esophageal biopsies, distal esophagus: - Segments of gastric mucosa showing mild chronic and focal acute inflammation. (JPM:ana m; 04/04/2019) [facility] 04/04/2019 0847 Local . 02 Comment: Sections of the small bowel biopsy reveal segments of duodenal mucosa showing focally prominent submucosal Nathan's glands. Where best oriented, the mucosal villi show no sprue-like changes or significant inflammatory changes. . Sections of the gastric ulcer biopsy reveal segments of gastric antral mucosa showing congestion, edema, focal foveolar hyperplasia, and focal acute inflammation. A properly controlled immunoperoxidase stain for Helicobacter is obtained. No Helicobacter organisms are identified. The findings are consistent with a reactive gastropathy with acute inflammation. . Sections of the distal esophageal biopsy reveals segments of gastric mucosa showing mild chronic and focal acute inflammation. There is no squamous esophageal mucosa. There is no evidence of Baum's change, dysplasia, or malignancy. (JPM:ana m; 04/04/2019) . . Special stain performed: Immunoperoxidase stain for Helicobacter on B1 . Electronically signed: . Alex Dupree MD, Pathologist NPI- [id number] . 01 Gross description: . A. The specimen is received in formalin, labeled "Aaron Ge Jr, small bowel BX" and consists of 2 fragments of vargas tissue measuring 0.5 x 0.3 cm and 0.4 x 0.3 cm which are entirely submitted in A1. . B. The specimen is received in formalin, labeled "Aaron Ge Jr, gastric ulcer" and consists of 2 fragments of pink-vargas tissue measuring 0.4 x 0.1 cm and 0.2 x 0.2 cm which are entirely submitted in B1. . C. The specimen is received in formalin, labeled "Aaron Ge Jr, distal esophagus BX" and consists of 3 fragments of pink-vargas tissue measuring between 0.2 x 0.2 cm and 0.3 x 0.3 cm which are entirely submitted in C1. (SDY; 04/03/2019) [facility]SYU 04/03/2019 1651 Local . 02 Pathologist provided ICD-10: K29.00, K31.9, K20.8 . 02 CPT . 257249, 989808, 590129, G46555 Specimen Comment: A courtesy copy of this report has been sent to [phone], [phone] Specimen Comment: [id number], , Specimen Comment: Report sent to ,DR SHEARER,DR SUGGS / DR BE Performed at: 01 [facility] [address], [place] [id number] MD Pierre Nobles MD Phone: [phone] Performed at: 02 [facility] [address] [place], [place] [id number] MD Alex Dupree MD Phone: [phone]
== END 2019-04-03 12:15 | disposition home or self-care (01) | DRG 379 ==
LOC: ER 09:17 → 6 SOUTH 11:32
PROVIDERS: ADMIT Internal Medicine; ATTEND Internal Medicine
PROC: 0DB88ZX Excision of Small Intestine, Via Natural or Artificial Opening Endoscopic, Diagnostic (ICD-10-PCS; 2019-04-02)
PROC: 0DB68ZX Excision of Stomach, Via Natural or Artificial Opening Endoscopic, Diagnostic (ICD-10-PCS; 2019-04-02)
PROC: 30233N1 Transfusion of Nonautologous Red Blood Cells into Peripheral Vein, Percutaneous Approach (ICD-10-PCS; 2019-04-02)
PROC: 0DB38ZX Excision of Lower Esophagus, Via Natural or Artificial Opening Endoscopic, Diagnostic (ICD-10-PCS; principal; 2019-04-02 12:25)
DX: K25.4 Chronic or unspecified gastric ulcer with hemorrhage (principal); I10 Essential (primary) hypertension; D50.0 Iron deficiency anemia secondary to blood loss (chronic); I12.9 Hypertensive chronic kidney disease with stage 1 through stage 4 chronic kidney disease, or unspecified chronic kidney disease; K20.9 Esophagitis, unspecified; K29.70 Gastritis, unspecified, without bleeding; N18.9 Chronic kidney disease, unspecified; Z79.82 Long term (current) use of aspirin; Z86.61 Personal history of infections of the central nervous system
CPT/HCPCS: 36415; 43239; 80048; 80053; 81001; 82274; 85014; 85018; 85025; 85027; 85610; 85730; 86850; 86900; 86901; 86920; 88305; 88342; C9113; J2001; J2704; J7030; P9016; G0378

== ENCOUNTER → 2020-01-31 | Outpatient (CLI) | payer BC ==
[~2020-01-31] MED LIST changes: +AMLO-186 PO; -AMLO5TAB10 PO; +PANT40TA77 PO
--- NOTE | 2020-01-31 20:05 | RAD ---
PA and lateral chest. HISTORY: Covid, evaluate for pneumonia PA and lateral views were taken of the chest. There are hazy bilateral infiltrates most consistent wi th atypical or viral pneumonia or Covid pneumonia. Heart is normal in size. There is no pleural effus ion. IMPRESSION: 1. Bilateral infiltrates. Electronically signed by: Arpan Bautista MD (01/31/2020 8:03 PM) [id number]
== END ==
LOC: RAD 16:47
PROVIDERS: ATTEND Internal Medicine
DX: R91.8 Other nonspecific abnormal finding of lung field (principal)
CPT/HCPCS: 71046

== ENCOUNTER 2020-02-01 13:20 | Inpatient (IN) | payer BC, MEDICARE, OTHER ==
[~2020-02-01] VITALS: Ht 185.4 cm; Wt 95.0 kg
--- NOTE | 2020-02-01 14:09 | PHYS DOC ---
Past Medical History Past Medical History: Hypertension, Renal Disease, Other Additional Past Medical Histor: encephalitis, TBI Past Surgical History: No Surgical History Smoking Status: Never Smoker Alcohol Use: None General Adult EDM: Chief Complaint: WEAKNESS/GENERALIZED HPI: HPI: Patient is a 69 year old male who presents with 10 days ago was positive for Covid and had a chest x-ray done by Dr. Christopher yesterday and it showed bilateral pneumonia. Patient states he is just having fatigue and weakness. He denies chest pain, shortness of air, dizziness, headache, fever, nausea, vomiting, abdominal pain, syncope, cough, nasal congestion, numbness or tingling, focal weakness. He has no pain at this time. Review of Systems: Review of Systems: Constitutional: Denies fever or chills. [] Eyes: Denies change in visual acuity. [] HENT: Denies nasal congestion or sore throat. [] Respiratory: Denies cough or shortness of breath. [] Cardiovascular: Denies chest pain or edema. [] GI: Denies abdominal pain, nausea, vomiting, bloody stools or diarrhea. [] : Denies dysuria. [] Musculoskeletal: Denies back pain or joint pain. +Generalized fatigue and weakness [] Integument: Denies rash. [] Neurologic: Denies headache, focal weakness or sensory changes. [] Endocrine: Denies polyuria or polydipsia. [] Lymphatic: Denies swollen glands. [] Psychiatric: Denies depression or anxiety. [] Heart Score: Risk Factors: Risk Factors: DM, Current or recent (<one month) smoker, HTN, HLP, family history of CAD, obesity. Risk Scores: Score 0 - 3: 2.5% MACE over next 6 weeks - Discharge Home Score 4 - 6: 20.3% MACE over next 6 weeks - Admit for Clinical Observation Score 7 - 10: 72.7% MACE over next 6 weeks - Early Invasive Strategies Allergies: Allergies: Allergies Coded Allergies Type Severity Reaction Last Updated Verified No Known Drug Allergies 04/01/19 No Physical Exam: PE: Constitutional: Well developed, well nourished, no acute distress, non-toxic appearance. [] HENT: Normocephalic, atraumatic, bilateral external ears normal, oropharynx moist, no oral exudates, nose normal. [] Eyes: PERRLA, EOMI, conjunctiva normal, no discharge. [] Neck: Normal range of motion, no tenderness, supple, no stridor. [] Cardiovascular:Heart rate regular rhythm, no murmur [] Lungs & Thorax: Bilateral upper breath sounds clear and lower diminished bilaterally to auscultation [] Abdomen: Bowel sounds normal, soft, no tenderness, no masses, no pulsatile masses. [] Skin: Warm, dry, no erythema, no rash. [] Back: No tenderness, no CVA tenderness. [] Extremities: No tenderness, no cyanosis, no clubbing, ROM intact, no edema. [] Neurologic: Alert and oriented X 3, normal motor function, normal sensory function, no focal deficits noted. [] Psychologic: Affect normal, judgement normal, mood normal. [] EKG: EK and read by Dr Hernandez as sinus rhythm and no STEMI Radiology/Procedures: Radiology/Procedures: [] Course & Med Decision Making: Course & Med Decision Making Pertinent Labs and Imaging studies reviewed. (See chart for details) COVID-19 CRITERIA: The patient was evaluated during the global COVID-19 pandemic, and that diagnosis was suspected/considered upon their initial presentation. Their evaluation, treatment and testing was consistent with current guidelines for patients who present with complaints or symptoms that may be related to COVID-19. See HPI. Alert and oriented x4. Speaks in full complete sentences. Skin pink warm and dry. Lungs are clear in upper lobes and diminished in lower lobes. Patient is anywhere from 92 to 95% on room air. His blood pressure is 101 systolic and he states he has not been taking his blood pressure medications. He states he has not been eating or drinking hardly anything for the last 7 days. He is ambulatory with a steady gait. Respirations are 20, he is in no respiratory distress. I have ordered Solu-Medrol and Zosyn IV. He is also got a liter of fluids. PATIENT: AMOR AMAYA ACCOUNT: [id number] : 1950 LOCATION: [facility] AGE: 69 SEX: M EXAM STATUS: REG CLI ORD. PHYSICIAN: JLUIS CHRISTOPHER MD REASON: Covid + PROCEDURE: CHEST PA & LATERAL PA and lateral chest. HISTORY: Covid, evaluate for pneumonia PA and lateral views were taken of the chest. There are hazy bilateral infiltrates most consistent with atypical or viral pneumonia or Covid pneumonia. Heart is normal in size. There is no pleural effusion. IMPRESSION: 1. Bilateral infiltrates. Electronically signed by: Arpan Bautista MD (01/31/2020 8:03 PM) [id number] DICTATED and SIGNED BY: ARPAN BAUTISTA MD DATE: 01/31/20 [id number] 0 [] Dragon Disclaimer: Dragon Disclaimer: This electronic medical record was generated, in whole or in part, using a voice recognition dictation system. COVID-19 Patient Risks: Age 65 or older: Yes Sign of co-morbidity: Yes Exp to person + for COVID: Yes Exp to PUI: No Travel from affected area: No Lower respiratory symptoms: Yes Fever: No Other: Yes (FATIGUE) PPE Use: Full PPE with N95 mask or PAPR: Yes Departure Departure Impression: Primary Impression: COVID-19 Additional Impression: Pneumonia Qualified Codes: J18.9 - Pneumonia, unspecified organism Disposition: ADMITTED INPT THIS HOSP Admitting Physician: Kelly Black Condition: STABLE Referrals: JLUIS CHRISTOPHER MD (PCP) LESLIE LARSEN APRN Feb 01, 2020 14:09
[2020-02-01 14:14] LABS: BASO % 0 % (0-3); EOS % 0 % (0-3); HEMATOCRIT 39.1 % (39.0-53.0); HEMOGLOBIN 13.7 g/dL (13.0-17.5); LYMPH # 0.9 x10^3/uL (1.0-4.8); LYMPH % 21 % (24-48); MEAN CORPUSCULAR HEMOGLOBIN 33 pg (25-35); MEAN CORPUSCULAR HGB CONC 35 g/dL (31-37); MEAN CORPUSCULAR VOLUME 93 fL (79-100); MONO # 0.2 x10^3/uL (0.0-1.1); MONO % 6 % (0-9); NEUT # 3.1 x10^3/uL (1.8-7.7); NEUT % 73 % (31-73); PLATELET COUNT 247 x10^3/uL (140-400); RED BLOOD COUNT 4.19 x10^6/uL (4.30-5.70); RED CELL DISTRIBUTION WIDTH 13.9 % (11.5-14.5); WHITE BLOOD COUNT 4.3 x10^3/uL (4.0-11.0)
[2020-02-01] MEDS ORDERED: methylPREDNISolone SOD SUCC PF 125 MG/2 ML VIAL. IV ONE (14:15)
[2020-02-01] MEDS ORDERED: IV NORMAL SALINE 1000ML BAG 1,000 ML IV SCH (14:15)
[2020-02-01] MEDS ORDERED: PIPERACILLIN/TAZOBACTAM 3.375 GM in IV NORMAL SALINE 50ML 50 ML IV ONE (14:15)
[2020-02-01 14:36] LABS: CALCIUM 8.8 mg/dL (8.5-10.1); CREATININE 1.6 mg/dL (0.7-1.3); GFR 52.3; POTASSIUM 3.5 mmol/L (3.5-5.1)
[2020-02-01 14:49] LABS: ALBUMIN 2.3 g/dL (3.4-5.0); ALBUMIN/GLOBULIN RATIO 0.4 (1.0-1.7); TOTAL BILIRUBIN 0.5 mg/dL (0.2-1.0); TOTAL PROTEIN 7.6 g/dL (6.4-8.2)
[2020-02-01] MEDS ORDERED: ONDANSETRON PF 4 MG/2 ML VIAL. IV PRN (17:00)
[2020-02-01] MEDS ORDERED: ACETAMINOPHEN 325 MG TABLET. PO PRN (17:00)
[2020-02-01] MEDS ORDERED: AZITHRMYCN 500MG IVPB FOR OMNI 250 ML IV ONE (17:00)
[2020-02-01 21:22] LABS: BILIRUBIN,URINE NEGATIVE (NEG); CLARITY,URINE CLEAR; COLOR,URINE YELLOW; NITRITE,URINE NEGATIVE (NEG); PROTEIN,URINE 100 mg/dL (NEG-TRACE)
[2020-02-01 21:29] LABS: BARBITURATES NEG (NEG); BENZODIAZEPINES NEG (NEG); CANNABINOIDS NEG (NEG); COCAINE NEG (NEG); HYALINE CASTS, URINE FEW /HPF; METHADONE NEG (NEG); OPIATES NEG (NEG); PHENCYCLIDINE NEG (NEG); RBC,URINE OCC /HPF (0-2)
[2020-02-01 21:30] VITALS: BP 133/77
[2020-02-01 21:30] LABS: AMPHETAMINE/METHAMPHETAMINE NEG (NEG); BACTERIA,URINE 0 /HPF (0-FEW); WBC,URINE 0 /HPF (0-4)
[2020-02-01 23:00] VITALS: BP 130/70
[2020-02-02 03:00] VITALS: BP 145/75
[2020-02-02 07:40] VITALS: BP 128/78
--- NOTE | 2020-02-02 09:19 | CONS ---
DATE OF CONSULTATION: PULMONARY CONSULTATION ATTENDING PHYSICIAN: Kelly Black MD REASON FOR CONSULTATION: COVID-19 pneumonia. RE-DICTATED JUSTIN ROWE MD DR: TEO/larry JOB#: [id number] / [id number] YOSEF
[2020-02-02] MEDS: DEXAMETHASONE SOD PHOS 4 MG/ML VIAL IVP SCH (09:22)
--- NOTE | 2020-02-02 09:48 | CONS ---
DATE OF CONSULTATION: PULMONARY CONSULTATION ATTENDING PHYSICIAN: Kelly Black MD REASON FOR CONSULTATION: COVID-19 pneumonia. HISTORY OF PRESENT ILLNESS: The patient is a 69-year-old male who was diagnosed with COVID-19 ten days ago. He had a chest x-ray done in his primary care's office and was told that he has pneumonia, as a result, he was hospitalized. He denies any shortness of breath. He has no chest pain, has no significant cough. No focal weakness. Chest x-ray revealed bilateral perihilar infiltrate. PAST MEDICAL HISTORY: Significant for hypertension, kidney disease, history of encephalitis, traumatic brain injury. PAST SURGICAL HISTORY: None. ALLERGIES: None. MEDICATIONS: Reviewed as listed in the MRAD including azithromycin and dexamethasone. REVIEW OF SYSTEMS: Ten-point system obtained. Pertinent positives discussed in my history of present illness, otherwise noncontributory. All systems that were negative were reviewed as well. SOCIAL HISTORY: Denies tobacco history. PHYSICAL EXAMINATION: VITAL SIGNS: Reviewed. He is afebrile, pulse ox 90% on 2 liters. Visual exam done due to COVID-19. No obvious respiratory distress. No skin rash. No paradoxical breathing. LABORATORY DATA: Reviewed. White cell count 4.3, hemoglobin 13.7, platelets are 247. BUN 19, creatinine 1.6. IMPRESSION: 1. Acute hypoxic respiratory failure secondary to COVID-19 viral pneumonia. 2. Abnormal chest x-ray with mild perihilar infiltrates suggestive of COVID-19 viral pneumonia. 3. Acute kidney injury. RECOMMENDATIONS: 1. Continue present oxygen. Saturations are 99%. He can come off of oxygen. 2. Continue antibiotic. 3. Continue dexamethasone. 4. Add DVT prophylaxis. 5. Monitor renal function. 6. Pulmonary status is stable. We will follow along with you as needed. 7. Can go home in next 24 hr if off Oxygen JUSTIN ROWE MD DR: TEO/larry JOB#: [id number] / [id number] YOSEF
--- NOTE | 2020-02-02 10:00 | PDOC ---
Provider Note Date of Service: DATE: 02/02/20 TIME: 10:00 Provider Note H&P dictated #[id number] Justifications for Admission Other Justification ELBA PRABHAKAR MD Feb 02, 2020 10:00
[2020-02-02] MEDS ORDERED: POTASSIUM CHLORIDE 20 MEQ TABLET.ER. PO ONE (10:30)
[2020-02-02] MEDS: PANTOPRAZOLE 40 MG TABLET.DR. PO SCH (10:32)
[2020-02-02] MEDS: amLODIPine BESYLATE 5 MG TABLET PO SCH (10:32)
[2020-02-02 11:00] VITALS: BP 136/80
[2020-02-02] MEDS ORDERED: AZITHRMYCN 500MG IVPB FOR OMNI 250 ML IV SCH (11:00)
[2020-02-02] MEDS ORDERED: ENOXAPARIN 40 MG/0.4 ML SYRINGE. SQ SCH (11:00)
--- NOTE | 2020-02-02 11:25 | CONS ---
DATE OF CONSULTATION: 02/02/2020 REFERRING PHYSICIAN: Kelly Black MD REASON FOR CONSULTATION: COVID-19 infection. HISTORY OF PRESENT ILLNESS: A 69-year-old male who presented to the ER with complaints of COVID positive, diagnosed 10 days ago with chest x-ray done a day prior to admission by Dr. Massey in his office, which showed bilateral pneumonia. The patient continued to have generalized weakness, fatigue, poor p.o. intake and some diarrhea. He has no fevers. Chest x-ray showed bilateral infiltrates. The patient was hypoxic, requiring 2 liters O2 by nasal cannula. White count was 4.3 with lymphopenia, ALIX with underlying CKD. UA was negative. Chest x-ray revealed bilateral infiltrates. The patient was started on dexamethasone, azithromycin, also received a dose of Zosyn in the ER. ID consultation has been requested for antibiotic management. Today, the patient feels a little better. He has been weaned off oxygen. PAST MEDICAL HISTORY: Hypertension, anemia, CKD, history of encephalitis, history of GI bleed. PAST SURGICAL HISTORY: None. ALLERGIES: None. CURRENT MEDICATIONS: Azithromycin, dexamethasone, one dose of Zosyn. Other medications reviewed in MRAD. REVIEW OF SYSTEMS: Negative except for above in HPI. SOCIAL HISTORY: , lives with . No smoking, no alcohol. Works for [employer]. PHYSICAL EXAMINATION: VITAL SIGNS: Temperature 97.4, pulse 68, respiratory rate 18, blood pressure 136/80, oxygen saturation 97% on room air. GENERAL: Alert, oriented x 3 male lying in bed comfortably, in no acute distress. HEENT: Normocephalic, atraumatic. Anicteric. NECK: Supple, no JVD. LUNGS: Clear bilaterally. No wheezing. HEART: S1, S2. No gallops or murmurs. ABDOMEN: Soft, nontender, nondistended. EXTREMITIES: No edema, no cyanosis. DERMATOLOGIC: Warm, dry. No generalized rash. NEUROLOGIC: Alert and oriented x 3. LABORATORY DATA: WBC 4.3, hemoglobin 13.7, hematocrit 39.1, platelets 247. Sodium 137, potassium 3.5, chloride 103, bicarb 25, BUN 19, creatinine 1.6, AST 72. BNP 157. Albumin 2.3. UA negative. IMAGING: Chest x-ray, bilateral pulmonary infiltrates. IMPRESSION: 1. COVID-19 infection. 2. Acute hypoxic respiratory failure secondary to COVID-19 viral pneumonia. Now on RA 3. Acute kidney injury with underlying chronic kidney disease. 4. Lymphopenia. 5. Hypertension. 6. Generalized weakness. 7. Protein-calorie malnutrition. RECOMMENDATIONS: 1. Continue supportive care. 2. On dexamethasone 3. Continue azithromycin. 4. Maintain aspiration precaution. Thank you, Dr. Black, for consulting Infectious Disease to participate in this patient's care. If you have any questions, do not hesitate to contact me. NEY SCHREIBER MD DR: VENUS/larry JOB#: [id number] / [id number] YOSEF
--- NOTE | 2020-02-02 11:37 | HP ---
ADMIT DATE: 02/01/2020 HISTORY OF PRESENT ILLNESS: This 69-year-old male was diagnosed to have COVID-19 infection about 10 days ago. The patient was seen in the office by Dr. Massey day before yesterday, he ordered a chest x-ray as the patient was feeling weak and was not eating much and getting worse at that time. A chest x-ray showed bilateral infiltrates and because of that, Dr. Massey asked him to go to the Emergency Room. In the Emergency Room, chest x-ray revealed bilateral infiltrates. The patient has not been eating for several days. He remained weak and has had some cough and congestion. Because of that, the patient was admitted for further evaluation and management. REVIEW OF SYSTEMS: At present time, the patient states that he is feeling somewhat better. His appetite is poor, but he is trying to make himself eat. He denies any fever or chills. He admits to occasional cough. He denies any dyspnea, nausea, vomiting or abdominal pain. He admits to generalized weakness. Other systems reviewed and are negative. PAST MEDICAL HISTORY: The patient has a history of admission to [facility] in 03/2019. At that time, he had GI bleeding and received blood transfusion. He was noted to have gastric ulcer and gastroesophageal reflux disease with esophagitis. He has a history of hypertension, mild chronic kidney disease and encephalitis. PAST SURGICAL HISTORY: None. ALLERGIES: None known any. FAMILY HISTORY: Kidney disease. SOCIAL HISTORY: No history of smoking, alcoholism or drug abuse. MEDICATIONS: The patient is on amlodipine, pantoprazole and fish oil and ascorbic acid. PHYSICAL EXAMINATION: VITAL SIGNS: Temperature 97.6, pulse 67 per minute, respirations 20 per minute, blood pressure 133/77 mmHg, O2 sats are 92-98% on oxygen by nasal cannula 2 liters per minute. GENERAL: The patient is alert, oriented and not in acute distress. EYES: Pupils reacting to light. Conjunctivae pale. Sclerae muddy. HENT: Unremarkable. This is a partial exam. SKIN: Warm and dry. There is no cyanosis. NECK: Supple. JVP normal. No thyromegaly. Trachea midline. LUNGS: Decreased breath sounds at bases with few bilateral basal rales. CARDIOVASCULAR: S1, S2 regular. ABDOMEN: Soft, nontender, no guarding, no rigidity. Bowel sounds present. EXTREMITIES: No edema. CENTRAL NERVOUS SYSTEM: Alert and oriented. LABORATORY FINDINGS: WBC count 4.3, hemoglobin 13.7, platelet count is 247,000. The patient has lymphopenia. Sodium 137, potassium 3.5, BUN 19, creatinine 1.6, BNP 157, AST 72, albumin 2.3. Urinalysis is unremarkable. Chest x-ray shows bilateral infiltrates. IMPRESSION: 1. COVID-19 pneumonia. 2. Hypertension. 3. Gastroesophageal reflux disease. 4. Dehydration. 5. Chronic kidney disease. 6. History of esophagitis. 7. History of gastric ulcer. 8. Weakness. 9. Hypokalemia. PLAN: Consult Dr. Marie for Pulmonary evaluation and management and Dr. Reno for Infectious Disease evaluation and management. The patient has been started on IV fluids. The patient was started on IV azithromycin. Replace potassium. The patient was also started on Zosyn and IV dexamethasone. The patient was given 1 dose of IV Solu-Medrol in the ER. For details, please refer to the orders. ELBA PRABHAKAR MD DR: LARISSA/larry JOB#: [id number] / [id number]
[2020-02-02 15:30] VITALS: BP 132/80
[2020-02-02] MEDS: AZITHROMYCIN 500 MG in IV NORMAL SALINE 250ML 250 ML IV SCH (17:34)
[2020-02-02 19:30] VITALS: BP 119/72
[2020-02-02] MEDS: LACTOBACILLUS RHAMNOSUS GG 1 CAPSULE. PO SCH (20:35)
[2020-02-02] MEDS: ENOXAPARIN 40 MG/0.4 ML SYRINGE. SQ SCH (20:36)
[2020-02-02 23:24] VITALS: BP 135/84
[2020-02-03 03:40] VITALS: BP 135/79
[2020-02-03 07:00] VITALS: BP 133/80
[2020-02-03 08:41] LABS: BASO % 0 % (0-3); EOS % 0 % (0-3); HEMATOCRIT 38.8 % (39.0-53.0); LYMPH # 0.8 x10^3/uL (1.0-4.8); LYMPH % 7 % (24-48); MEAN CORPUSCULAR HEMOGLOBIN 31 pg (25-35); MEAN CORPUSCULAR HGB CONC 34 g/dL (31-37); MEAN CORPUSCULAR VOLUME 92 fL (79-100); MONO # 0.5 x10^3/uL (0.0-1.1); MONO % 4 % (0-9); NEUT # 10.7 x10^3/uL (1.8-7.7); NEUT % 89 % (31-73); PLATELET COUNT 317 x10^3/uL (140-400); RED BLOOD COUNT 4.22 x10^6/uL (4.30-5.70); RED CELL DISTRIBUTION WIDTH 14.1 % (11.5-14.5)
[2020-02-03] MEDS: DEXAMETHASONE SOD PHOS 4 MG/ML VIAL IVP SCH (08:56)
[2020-02-03] MEDS: LACTOBACILLUS RHAMNOSUS GG 1 CAPSULE. PO SCH ×2 (08:56→21:06)
[2020-02-03] MEDS: ENOXAPARIN 40 MG/0.4 ML SYRINGE. SQ SCH ×2 (08:56→21:06)
[2020-02-03] MEDS: amLODIPine BESYLATE 5 MG TABLET PO SCH (08:57)
[2020-02-03] MEDS: PANTOPRAZOLE 40 MG TABLET.DR. PO SCH (08:57)
[2020-02-03 09:01] LABS: CALCIUM 8.4 mg/dL (8.5-10.1); CREATININE 1.2 mg/dL (0.7-1.3); GFR 72.9
--- NOTE | 2020-02-03 10:18 | PDOC ---
Infectious Disease Note Subjective: Subjective Patient feels much better Remains on room air Cough and shortness of breath are improving Vital Signs: Vital Signs Vital Signs Date Time Temp Pulse Resp B/P (MAP) Pulse Ox O2 Delivery O2 Flow Rate FiO2 02/03/20 08:57 67 133/80 02/03/20 08:00 Room Air 02/03/20 07:00 95.5 18 98 95.5 Physical Exam: PHYSICAL EXAM GENERAL: Alert, oriented x 3 male lying in bed comfortably, in no acute distress. HEENT: Normocephalic, atraumatic. Anicteric. NECK: Supple, no JVD. LUNGS: Clear bilaterally. No wheezing. HEART: S1, S2. No gallops or murmurs. ABDOMEN: Soft, nontender, nondistended. EXTREMITIES: No edema, no cyanosis. DERMATOLOGIC: Warm, dry. No generalized rash. NEUROLOGIC: Alert and oriented x 3. Medications: Inpatient Meds: Current Medications Medications (Trade) Dose Ordered Sig/Cristina Start Time Stop Time Status Last Admin Dose Admin Acetaminophen (Tylenol) 650 mg PRN Q4HRS PRN 02/01/20 17:00 02/02/20 16:59 DC Amlodipine Besylate (Norvasc) 5 mg DAILY 02/02/20 10:30 02/03/20 08:57 5 MG Azithromycin 250 ml @ 250 mls/hr DAILY 02/02/20 11:00 UNV Azithromycin 500 mg/Sodium Chloride 250 ml @ 250 mls/hr Q24H 02/02/20 17:00 02/02/20 17:34 250 MLS/HR Dexamethasone Sodium Phosphate (Decadron) 6 mg DAILY 02/02/20 09:00 02/03/20 08:56 6 MG Enoxaparin Sodium (Lovenox 40mg Syringe) 40 mg BID 02/02/20 21:00 02/03/20 08:56 40 MG Lactobacillus Rhamnosus (Culturelle) 1 cap BID 02/02/20 21:00 02/03/20 08:56 1 CAP Methylprednisolone Sodium Succinate (SOLU-Medrol 125MG VIAL) 125 mg 1X ONCE 02/01/20 14:15 02/01/20 14:16 DC 02/01/20 14:54 125 MG Ondansetron HCl (Zofran) 4 mg PRN Q8HRS PRN 02/01/20 17:00 02/02/20 16:59 DC Pantoprazole Sodium (Protonix) 40 mg DAILYAC 02/02/20 10:30 02/03/20 08:57 40 MG Piperacillin Sod/ Tazobactam Sod 3.375 gm/Sodium Chloride 50 ml @ 100 mls/hr 1X ONCE 02/01/20 14:15 02/01/20 14:44 DC 02/01/20 14:55 100 MLS/HR Potassium Chloride/Sodium Chloride 1,000 ml @ 75 mls/hr [id number] 02/02/20 09:00 02/02/20 20:36 75 MLS/HR Potassium Chloride (Klor-Con) 20 meq 1X ONCE 02/02/20 10:30 02/02/20 10:31 DC 02/02/20 10:32 20 MEQ Sodium Chloride 1,000 ml @ 1,000 mls/hr Q1H 02/01/20 14:15 02/01/20 15:14 DC 02/01/20 14:15 1,000 MLS/HR Labs: Lab Laboratory Tests Test 02/03/20 07:30 White Blood Count 12.0 x10^3/uL (4.0-11.0) Red Blood Count 4.22 x10^6/uL (4.30-5.70) Hemoglobin 13.0 g/dL (13.0-17.5) Hematocrit 38.8 % (39.0-53.0) Mean Corpuscular Volume 92 fL (79-100) Mean Corpuscular Hemoglobin 31 pg (25-35) Mean Corpuscular Hemoglobin Concent 34 g/dL (31-37) Red Cell Distribution Width 14.1 % (11.5-14.5) Platelet Count 317 x10^3/uL (140-400) Neutrophils (%) (Auto) 89 % (31-73) Lymphocytes (%) (Auto) 7 % (24-48) Monocytes (%) (Auto) 4 % (0-9) Eosinophils (%) (Auto) 0 % (0-3) Basophils (%) (Auto) 0 % (0-3) Neutrophils # (Auto) 10.7 x10^3/uL (1.8-7.7) Lymphocytes # (Auto) 0.8 x10^3/uL (1.0-4.8) Monocytes # (Auto) 0.5 x10^3/uL (0.0-1.1) Eosinophils # (Auto) 0.0 x10^3/uL (0.0-0.7) Basophils # (Auto) 0.0 x10^3/uL (0.0-0.2) Sodium Level 139 mmol/L (136-145) Potassium Level 4.0 mmol/L (3.5-5.1) Chloride Level 105 mmol/L (98-107) Carbon Dioxide Level 25 mmol/L (21-32) Anion Gap 9 (6-14) Blood Urea Nitrogen 21 mg/dL (8-26) Creatinine 1.2 mg/dL (0.7-1.3) Estimated GFR (Cockcroft-Gault) 72.9 Glucose Level 121 mg/dL (70-99) Calcium Level 8.4 mg/dL (8.5-10.1) Objective: Assessment: 1. COVID-19 infection. 2. Acute hypoxic respiratory failure secondary to COVID-19 viral pneumonia. Now on RA 3. Acute kidney injury with underlying chronic kidney disease. 4. Lymphopenia. 5. Hypertension. 6. Generalized weakness. 7. Protein-calorie malnutrition. Plan: Plan of Care 1. Continue supportive care. 2. On dexamethasone 3. Continue azithromycin. 4. Patient can be discharged home to complete azithromycin per ID standpoint NEY SCHREIBER MD Feb 03, 2020 10:18
--- NOTE | 2020-02-03 10:38 | PDOC ---
IM PROGRESS NOTES- Subjective Subjective Cough congestion is improving. No complaints of dyspnea. Objective Vitals/I&O Vital Signs Date Time Temp Pulse Resp B/P (MAP) Pulse Ox O2 Delivery O2 Flow Rate FiO2 02/03/20 08:57 67 133/80 02/03/20 08:00 Room Air 02/03/20 07:00 95.5 18 98 95.5 I & O 02/02/20 02/02/20 02/03/20 15:00 23:00 07:00 Intake Total 480 ml 200 ml 700 ml Balance 480 ml 200 ml 700 ml Physical Exam Physical Exam General appearance - alert, and in no distress and oriented to person, place, and time Mental Status - alert, oriented to person, place, and time, affect appropriate to mood Head - normal Chest -decreased breath sounds at bases occasional basal rales. Heart - S1 and S2 normal Abdomen - soft, non tender Neurological - alert and oriented Extremities - no pedal edema Skin - warm and dry Labs Laboratory Tests Test 02/03/20 07:30 White Blood Count 12.0 x10^3/uL (4.0-11.0) H Red Blood Count 4.22 x10^6/uL (4.30-5.70) L Hemoglobin 13.0 g/dL (13.0-17.5) Hematocrit 38.8 % (39.0-53.0) L Mean Corpuscular Volume 92 fL (79-100) Mean Corpuscular Hemoglobin 31 pg (25-35) Mean Corpuscular Hemoglobin Concent 34 g/dL (31-37) Red Cell Distribution Width 14.1 % (11.5-14.5) Platelet Count 317 x10^3/uL (140-400) Neutrophils (%) (Auto) 89 % (31-73) H Lymphocytes (%) (Auto) 7 % (24-48) L Monocytes (%) (Auto) 4 % (0-9) Eosinophils (%) (Auto) 0 % (0-3) Basophils (%) (Auto) 0 % (0-3) Neutrophils # (Auto) 10.7 x10^3/uL (1.8-7.7) H Lymphocytes # (Auto) 0.8 x10^3/uL (1.0-4.8) L Monocytes # (Auto) 0.5 x10^3/uL (0.0-1.1) Eosinophils # (Auto) 0.0 x10^3/uL (0.0-0.7) Basophils # (Auto) 0.0 x10^3/uL (0.0-0.2) Platelet Estimate Pending Sodium Level 139 mmol/L (136-145) Potassium Level 4.0 mmol/L (3.5-5.1) Chloride Level 105 mmol/L (98-107) Carbon Dioxide Level 25 mmol/L (21-32) Anion Gap 9 (6-14) Blood Urea Nitrogen 21 mg/dL (8-26) Creatinine 1.2 mg/dL (0.7-1.3) Estimated GFR (Cockcroft-Gault) 72.9 Glucose Level 121 mg/dL (70-99) H Calcium Level 8.4 mg/dL (8.5-10.1) L Laboratory Tests 02/03/20 07:30 Laboratory Tests 02/03/20 07:30 Meds Current Medications Medications (Trade) Dose Ordered Sig/Cristina Route PRN Reason Start Time Stop Time Status Last Admin Dose Admin Azithromycin 500 mg/Sodium Chloride 250 ml @ 250 mls/hr Q24H IV 02/02/20 17:00 02/02/20 17:34 Enoxaparin Sodium (Lovenox 40mg Syringe) 40 mg Q24H SQ 02/02/20 11:00 02/02/20 13:18 DC 02/02/20 10:32 Enoxaparin Sodium (Lovenox 40mg Syringe) 40 mg BID SQ 02/02/20 21:00 02/03/20 08:56 Lactobacillus Rhamnosus (Culturelle) 1 cap BID PO 02/02/20 21:00 02/03/20 08:56 Assessment Assessment 1. COVID-19 pneumonia. 2. Hypertension. 3. Gastroesophageal reflux disease. 4. Dehydration. 5. Chronic kidney disease. 6. History of esophagitis. 7. History of gastric ulcer. 8. Weakness. 9. Hypokalemia. PLAN: Consult Dr. Marie for Pulmonary evaluation and management and Dr. Reno for Infectious Disease evaluation and management. The patient has been started on IV fluids. The patient was started on IV azithromycin. Replace potassium. The patient was also started on Zosyn and IV dexamethasone. The patient was given 1 dose of IV Solu-Medrol in the ER. For details, please refer to the orders. Clinically improving. No need for IV steroids as patient is not hypoxic Patient still feels weak and would like to continue current treatment for 1 more day prior to going home. If stable will discharge him home tomorrow. Plan Plan For more details regarding further plans, please refer to the orders. Justifications for Admission Other Justification ELBA PRABHAKAR MD Feb 03, 2020 10:38
[2020-02-03 11:00] VITALS: BP 113/72
[2020-02-03 12:01] LABS: % BANDS 2 % (0-9); % LYMPHS 4 % (24-48); % MONOS 5 % (0-10); % SEGS 89 % (35-66); PLT ESTIMATE ADEQUATE (ADEQUATE)
[2020-02-03 15:00] VITALS: BP 130/80
[2020-02-03] MEDS: AZITHROMYCIN 500 MG in IV NORMAL SALINE 250ML 250 ML IV SCH (17:00)
[2020-02-03 19:25] VITALS: BP 144/89
[2020-02-03 23:33] VITALS: BP 140/84
[2020-02-04 03:25] VITALS: BP 131/85
[2020-02-04 07:00] VITALS: BP 138/87
[2020-02-04] MEDS: ENOXAPARIN 40 MG/0.4 ML SYRINGE. SQ SCH (08:21)
[2020-02-04] MEDS: LACTOBACILLUS RHAMNOSUS GG 1 CAPSULE. PO SCH (08:21)
[2020-02-04] MEDS: PANTOPRAZOLE 40 MG TABLET.DR. PO SCH (08:22)
[2020-02-04] MEDS: DEXAMETHASONE SOD PHOS 4 MG/ML VIAL IVP SCH (08:22)
[2020-02-04] MEDS: amLODIPine BESYLATE 5 MG TABLET PO SCH (08:22)
--- NOTE | 2020-02-04 10:17 | PDOC ---
PULMONARY PROGRESS NOTES DATE: 02/04/20 TIME: 10:15 Subjective no soa, on RA Vitals Vital Signs Date Time Temp Pulse Resp B/P (MAP) Pulse Ox O2 Delivery O2 Flow Rate FiO2 02/04/20 08:22 60 138/87 02/04/20 08:00 Room Air 2.0 02/04/20 07:00 98.0 16 99 98.0 General: Alert, No acute distress Lungs: Clear Cardiovascular: S1 Abdomen: Soft Neuro Exam: Alert Extremities: No Edema Labs Laboratory Tests Test 02/03/20 07:30 White Blood Count 12.0 x10^3/uL (4.0-11.0) Red Blood Count 4.22 x10^6/uL (4.30-5.70) Hemoglobin 13.0 g/dL (13.0-17.5) Hematocrit 38.8 % (39.0-53.0) Mean Corpuscular Volume 92 fL (79-100) Mean Corpuscular Hemoglobin 31 pg (25-35) Mean Corpuscular Hemoglobin Concent 34 g/dL (31-37) Red Cell Distribution Width 14.1 % (11.5-14.5) Platelet Count 317 x10^3/uL (140-400) Neutrophils (%) (Auto) 89 % (31-73) Lymphocytes (%) (Auto) 7 % (24-48) Monocytes (%) (Auto) 4 % (0-9) Eosinophils (%) (Auto) 0 % (0-3) Basophils (%) (Auto) 0 % (0-3) Neutrophils # (Auto) 10.7 x10^3/uL (1.8-7.7) Lymphocytes # (Auto) 0.8 x10^3/uL (1.0-4.8) Monocytes # (Auto) 0.5 x10^3/uL (0.0-1.1) Eosinophils # (Auto) 0.0 x10^3/uL (0.0-0.7) Basophils # (Auto) 0.0 x10^3/uL (0.0-0.2) Segmented Neutrophils % 89 % (35-66) Band Neutrophils % 2 % (0-9) Lymphocytes % 4 % (24-48) Monocytes % 5 % (0-10) Platelet Estimate Adequate (ADEQUATE) Sodium Level 139 mmol/L (136-145) Potassium Level 4.0 mmol/L (3.5-5.1) Chloride Level 105 mmol/L (98-107) Carbon Dioxide Level 25 mmol/L (21-32) Anion Gap 9 (6-14) Blood Urea Nitrogen 21 mg/dL (8-26) Creatinine 1.2 mg/dL (0.7-1.3) Estimated GFR (Cockcroft-Gault) 72.9 Glucose Level 121 mg/dL (70-99) Calcium Level 8.4 mg/dL (8.5-10.1) Medications Active Scripts Medications Dose Route/Sig Max Daily Dose Days Date Category Protonix (Pantoprazole Sodium) 40 Mg Tablet.dr 40 Mg PO DAILYAC 30 04/03/19 Rx Amlodipine Besylate 5 Mg Tablet 5 Mg PO DAILY 03/30/19 Reported Vitamin C (Ascorbic Acid) 500 Mg Capsule.er 1 Cap PO DAILY 30 03/30/19 Reported Fish Oil 1,000 Mg Softgel (Sylva-3 Fatty Acids/Fish Oil) 1 Each Capsule 1 Cap PO DAILY 30 03/30/19 Reported Impression . 1. Acute hypoxic respiratory failure secondary to COVID-19 viral pneumonia. 2. Abnormal chest x-ray with mild perihilar infiltrates suggestive of COVID-19 viral pneumonia. 3. Acute kidney injury. Plan . RECOMMENDATIONS: 1. on RA. off of oxygen. 2. Continue antibiotic. 3. Continue dexamethasone with taper 4. DVT prophylaxis. 5. Monitor renal function. improved. 6. Pulmonary status is stable. can go home on PO abx and steroid taper will sign off JUSTIN ROWE MD Feb 04, 2020 10:17
--- NOTE | 2020-02-04 10:33 | PDOC3 ---
IM DISCHARGE SUMMARY Date of Admission Date of Admission Date of Admission: Feb 01, 2020 at 16:55 Date of Discharge Date of Discharge February 04, 2020 Primary Diagnosis Primary Diagnosis 1. COVID-19 pneumonia. 2. Hypertension. 3. Gastroesophageal reflux disease. 4. Dehydration. 5. Chronic kidney disease. 6. History of esophagitis. 7. History of gastric ulcer. 8. Weakness. 9. Hypokalemia. Consults Consults Channing Gamble MD; Galileo Marie MD; Karan Reno MD Brief hospital course Brief hospital course This 69-year-old male was diagnosed to have COVID-19 infection about 10 days ago. The patient was seen in the office by Dr. Massey day before yesterday, he ordered a chest x-ray as the patient was feeling weak and was not eating much and getting worse at that time. A chest x-ray showed bilateral infiltrates and because of that, Dr. Massey asked him to go to the Emergency Room. In the Emergency Room, chest x-ray revealed bilateral infiltrates. The patient has not been eating for several days. He remained weak and has had some cough and congestion. Because of that, the patient was admitted for further evaluation and management. For more details regarding the past history, family history, social history, surgical history and other details, please refer to History and Physical. Consult Dr. Marie for Pulmonary evaluation and management and Dr. Reno for Infectious Disease evaluation and management. The patient has been started on IV fluids. The patient was started on IV azithromycin. Replace potassium. The patient was also started on Zosyn and IV dexamethasone. The patient was given 1 dose of IV Solu-Medrol in the ER. For details, please refer to the orders. Clinically improving. No need for IV steroids as patient is not hypoxic. Discussed with Dr. Reno. Patient has finished IV azithromycin course in the hospital. Clinically improving. Okay to discharge patient home tomorrow. Follow-up with in 5 days. Medications Medications reviewed and reconciled for discharge. Allergy Allergies Coded Allergies Type Severity Reaction Last Updated Verified No Known Drug Allergies 04/01/19 No Follow up in 5 days. DISPOSITION: Home Comments Discharge Management - 35 minutes. For other details please refer to discharge instructions Justicifation of Admission Dx: Justifications for Admission: Justification of Admission Dx: Comment: (COVID-19 pneumonia) ELBA PRABHAKAR MD Feb 04, 2020 10:33
[2020-02-04 10:41] VITALS: BP 125/71
--- NOTE | 2020-02-04 11:07 | PDOC ---
Infectious Disease Note Subjective: Subjective Patient feels much better Remains on room air eager for dc home today Vital Signs: Vital Signs Vital Signs Date Time Temp Pulse Resp B/P (MAP) Pulse Ox O2 Delivery O2 Flow Rate FiO2 02/04/20 10:41 97.8 74 18 125/71 (89) 97 Room Air 97.8 02/04/20 08:00 2.0 Physical Exam: PHYSICAL EXAM GENERAL: Alert, oriented x 3 male lying in bed comfortably, in no acute distress. HEENT: Normocephalic, atraumatic. Anicteric. NECK: Supple, no JVD. LUNGS: Clear bilaterally. No wheezing. HEART: S1, S2. No gallops or murmurs. ABDOMEN: Soft, nontender, nondistended. EXTREMITIES: No edema, no cyanosis. DERMATOLOGIC: Warm, dry. No generalized rash. NEUROLOGIC: Alert and oriented x 3. Medications: Inpatient Meds: Current Medications Medications (Trade) Dose Ordered Sig/Cristina Start Time Stop Time Status Last Admin Dose Admin Acetaminophen (Tylenol) 650 mg PRN Q4HRS PRN 02/01/20 17:00 02/02/20 16:59 DC Amlodipine Besylate (Norvasc) 5 mg DAILY 02/02/20 10:30 02/04/20 08:22 5 MG Azithromycin 250 ml @ 250 mls/hr DAILY 02/02/20 11:00 UNV Azithromycin 500 mg/Sodium Chloride 250 ml @ 250 mls/hr Q24H 02/02/20 17:00 02/03/20 17:00 250 MLS/HR Dexamethasone Sodium Phosphate (Decadron) 6 mg DAILY 02/02/20 09:00 02/04/20 08:22 6 MG Enoxaparin Sodium (Lovenox 40mg Syringe) 40 mg BID 02/02/20 21:00 02/04/20 08:21 40 MG Lactobacillus Rhamnosus (Culturelle) 1 cap BID 02/02/20 21:00 02/04/20 08:21 1 CAP Methylprednisolone Sodium Succinate (SOLU-Medrol 125MG VIAL) 125 mg 1X ONCE 02/01/20 14:15 02/01/20 14:16 DC 02/01/20 14:54 125 MG Ondansetron HCl (Zofran) 4 mg PRN Q8HRS PRN 02/01/20 17:00 02/02/20 16:59 DC Pantoprazole Sodium (Protonix) 40 mg DAILYAC 02/02/20 10:30 02/04/20 08:22 40 MG Piperacillin Sod/ Tazobactam Sod 3.375 gm/Sodium Chloride 50 ml @ 100 mls/hr 1X ONCE 02/01/20 14:15 02/01/20 14:44 DC 02/01/20 14:55 100 MLS/HR Potassium Chloride/Sodium Chloride 1,000 ml @ 75 mls/hr [id number] 02/02/20 09:00 02/02/20 20:36 75 MLS/HR Potassium Chloride (Klor-Con) 20 meq 1X ONCE 02/02/20 10:30 02/02/20 10:31 DC 02/02/20 10:32 20 MEQ Sodium Chloride 1,000 ml @ 1,000 mls/hr Q1H 02/01/20 14:15 02/01/20 15:14 DC 02/01/20 14:15 1,000 MLS/HR Objective: Assessment: 1. COVID-19 infection. 2. Acute hypoxic respiratory failure secondary to COVID-19 viral pneumonia. Now on RA 3. Acute kidney injury with underlying chronic kidney disease. 4. Lymphopenia. 5. Hypertension. 6. Generalized weakness. 7. Protein-calorie malnutrition. Plan: Plan of Care ok to dc home from id standpoint d/w rn d/w NEY Vides MD Feb 04, 2020 11:07
== END 2020-02-04 14:26 | disposition home or self-care (01) | DRG 177 ==
LOC: ER 13:20 → ED HOLD 16:55 → 2 SOUTH 21:28
PROVIDERS: ADMIT Internal Medicine; ATTEND Internal Medicine
DX: U07.1 COVID-19 (principal); J96.01 Acute respiratory failure with hypoxia; J12.89 Other viral pneumonia; N17.9 Acute kidney failure, unspecified; E46 Unspecified protein-calorie malnutrition; I12.9 Hypertensive chronic kidney disease with stage 1 through stage 4 chronic kidney disease, or unspecified chronic kidney disease; N18.2 Chronic kidney disease, stage 2 (mild); D72.810 Lymphocytopenia; E87.6 Hypokalemia; K21.9 Gastro-esophageal reflux disease without esophagitis; E86.0 Dehydration; Z68.27 Body mass index [BMI] 27.0-27.9, adult; Z87.820 Personal history of traumatic brain injury; Z87.11 Personal history of peptic ulcer disease; Z86.61 Personal history of infections of the central nervous system
CPT/HCPCS: 36415; 80048; 80053; 80307; 81001; 83605; 83880; 84484; 85007; 85025; 87040; 96361; 96365; 96367; 96375; J0456; J1100; J1650; J2543; J2930; J3480; J7030; J7050; 99285-25; G0378